=== PATIENT | male | born 1960 | race Caucasian/White ===

== ENCOUNTER 2020-04-12 06:57 | Day surgery (SDC) | payer BC ==
[~2020-04-12] VITALS: Ht 182.9 cm; Wt 96.2 kg
[2020-04-12] MEDS ORDERED: ROPI.25 (07:23)
--- NOTE | 2020-04-12 09:57 | NUR ---
04/12/20 0956 BRY FERREIRA EXAM BEGAIN LATER THAN SCHEDULED DT VENKAT LATE ARRIVAL
== END 2020-04-12 09:55 | disposition home or self-care (01) ==
LOC: ORSCSDS 06:57
PROVIDERS: Surgery
PROC: 0DBN8ZX Excision of Sigmoid Colon, Via Natural or Artificial Opening Endoscopic, Diagnostic (ICD-10-PCS; principal; 2020-04-12 08:00)
DX: Z12.11 Encounter for screening for malignant neoplasm of colon (principal); Z86.010 Personal history of colon polyps; K63.5 Polyp of colon; G47.33 Obstructive sleep apnea (adult) (pediatric); E78.5 Hyperlipidemia, unspecified; Z79.899 Other long term (current) drug therapy
CPT/HCPCS: 88305; J0330; J0461; J2405; J2704; J7120